=== PATIENT | female | born 1980 | race Caucasian/White ===

== ENCOUNTER 2018-07-05 18:57 | Emergency (ER) | payer BC, OTHER ==
[~2018-07-05] VITALS: Ht 172.7 cm; Wt 111.1 kg
[~2018-07-05 18:57] MED LIST: APAP500 PO; BCP PO; FLEXERIL PO; MEDROL DOSPAK21 TAB PO; MOBIC15 MG PO; NEURONTIN 300300 M1 PO; NORCO 5-325 TA1 EACH PO; NORFLEX100 MG PO; PHENERGAN 25 MG25 M1 PO; TRAMADOL 50 MG50 MG PO; ZOLOFT50 MG PO
[2018-07-05] MEDS ORDERED: NORFLEX100 MG PO (23:05)
[2018-07-05] MEDS ORDERED: MOBIC7.5 MG PO (23:05)
[2018-07-05 23:24] VITALS: BP 140/95
== END 2018-07-05 23:24 | disposition home or self-care (01) ==
LOC: ER 18:57
DX: S39.012A Strain of muscle, fascia and tendon of lower back, initial encounter (principal); M54.30 Sciatica, unspecified side; W00.0XXA Fall on same level due to ice and snow, initial encounter; Y93.89 Activity, other specified; Y92.89 Other specified places as the place of occurrence of the external cause; Y99.8 Other external cause status

== ENCOUNTER 2020-01-10 16:45 | Emergency (ER) | payer BC ==
[~2020-01-10] VITALS: Ht 172.7 cm; Wt 111.1 kg
[2020-01-10 16:45] VITALS: BP 184/118
[~2020-01-10 16:45] MED LIST changes: +MOBIC7.5 MG PO
[2020-01-10] MEDS ORDERED: PREDNISONE 20 M20 MG PO (18:25)
== END 2020-01-10 19:29 ==
LOC: ER 16:45
DX: M77.9 Enthesopathy, unspecified (principal); Z79.899 Other long term (current) drug therapy